=== PATIENT | male | born 1980 | race Two or more races ===

== ENCOUNTER 2017-03-29 23:47 | Emergency (ER) | payer OTHER ==
[~2017-03-29] VITALS: Ht 182.9 cm; Wt 100.0 kg
[2017-03-30] MEDS ORDERED: IBUPROFEN800 MG PO (00:42)
[2017-03-30] MEDS ORDERED: CYCLOBENZAPRINE10 MG PO (00:43)
[2017-03-30] MEDS ORDERED: GABAPENTIN300 MG PO (00:43)
[2017-03-30] MEDS ORDERED: VALIUM5 MG PO (00:56)
[2017-03-30] MEDS ORDERED: PREDNISONE20 MG PO (00:56)
[2017-03-30] MEDS ORDERED: PERCOCET 5/31 TABLET PO (00:56)
[2017-03-30 02:07] VITALS: BP 141/71
== END 2017-03-30 02:07 | disposition home or self-care (01) ==
LOC: EME 23:47
DX: M54.30 Sciatica, unspecified side (principal); M54.16 Radiculopathy, lumbar region
CPT/HCPCS: 99281; 99283; J7512